=== PATIENT | male | born 1975 | race Caucasian/White ===

== ENCOUNTER 2019-02-20 05:13 | Emergency (ER) | payer MEDICARE ==
[~2019-02-20] VITALS: Ht 188 cm; Wt 110.0 kg
--- NOTE | 2019-02-20 05:28 | NUR ---
bib remsa from home per emt pt has been smoking meth x 6 days, last use [id number], pt now having auditory and visual hallucinations, denies si/hi. 98% r/a, hr-84, b/p-134/90. monitors applied, siderails up x2, call light within reach
[2019-02-20] MEDS ORDERED: LORazepam 1MG TABLET PO ONE (05:30)
[2019-02-20] MEDS ORDERED: LORazepam 1MG TABLET ONE (05:32)
--- NOTE | 2019-02-20 05:36 | NUR ---
pt medicated per mar
[2019-02-20] MEDS ORDERED: CARV3.1212 PO (05:39)
[2019-02-20] MEDS ORDERED: FLUO10CA13 PO (05:39)
[2019-02-20] MEDS ORDERED: SERT25TA PO (05:39)
[2019-02-20] MEDS ORDERED: INSU100V8 SQ (05:39)
--- NOTE | 2019-02-20 06:13 | NUR ---
pt resting calmy, denies needs, monitors in place, call light within reach. will continue to monitor
--- NOTE | 2019-02-20 06:59 | NUR ---
report given to erick goodwin
--- NOTE | 2019-02-20 07:00 | NUR ---
received report from Jesusita. pt upright on gurney awake & calm, responds to staff approp, comfort measures provided, call light within reach.
[2019-02-20 08:01] VITALS: BP 125/79
--- NOTE | 2019-02-20 08:02 | NUR ---
pt upright on gurney with eyes closed, responds to staff approp, comfort measures provided, call light within reach.
[2019-02-20] MEDS ORDERED: ZIPRASIDONE 40MG CAPSULE PO ONE (08:30)
[2019-02-20] MEDS ORDERED: ZIPRASIDONE 20 MG INJ IM ONE (08:40)
[2019-02-20 08:43] LABS: BASOPHILS # (AUTO) 0.03 x10^3/uL (0-0.1); BASOPHILS % (AUTO) 0 % (0-1); EOSINOPHILS # (AUTO) 0.23 x10^3/uL (0-0.4); EOSINOPHILS % (AUTO) 3 % (1-7); LYMPHOCYTES # (AUTO) 2.97 x10^3/uL (1-3.4); LYMPHOCYTES % (AUTO) 32 % (22-44); MD NO; MEAN CORPUSCULAR HEMOGLOBIN 30.6 pg (27.5-34.5); MEAN CORPUSCULAR HGB CONC 33.3 g/dL (33.2-36.2); MEAN CORPUSCULAR VOLUME 91.9 fL (81-97); MONOCYTES # (AUTO) 0.27 x10^3/uL (0.2-0.8); MONOCYTES % (AUTO) 3 % (2-9); NEUTROPHILS # (AUTO) 5.73 x10^3/uL (1.8-6.8); NEUTROPHILS % (AUTO) 62 % (42-75); PLATELET COUNT 283 x10^3/uL (130-400); RED BLOOD COUNT 5.17 x10^6/uL (4.38-5.82); RED CELL DISTRIBUTION WIDTH 13.3 % (9.4-14.8)
[2019-02-20] MEDS ORDERED: ZIPRASIDONE 20MG CAPSULE ONE (08:45)
[2019-02-20 08:55] LABS: ALBUMIN 4.1 g/dL (3.4-5.0); ANION GAP 6 mmol/L (5-15); CALCIUM 9.8 mg/dL (8.5-10.1); CHLORIDE 111 mmol/L (98-107); CREATININE 0.95 mg/dL (0.7-1.3)
--- NOTE | 2019-02-20 08:56 | NUR ---
pt "had an episode" (yelling & violently rocking gurney back & forth while he was in it) & stated to PA he "has thoughts of killing himself by hanging", pt placed in safe environment & is currently laying calmly on gurney with eyes closed, responds to staff approp, comfort measures provided, all personal belongings in bag x1 placed in locker, sitter in full view.
[2019-02-20 09:05] LABS: ACETAMINOPHEN < 2 mcg/mL (10-30)
--- NOTE | 2019-02-20 09:51 | NUR ---
REPORT GIVEN TO EARLENE CUI
[2019-02-20 09:55] LABS: AMPHETAMINE SCREEN, URINE Positive (Negative); BARBITURATE SCREEN, URINE Negative (Negative); BENZODIAZEPINE SCREEN, URINE Negative (Negative); CANNABINOID SCREEN, URINE Negative (Negative); COCAINE SCREEN, URINE Negative (Negative); METHADONE SCREEN, URINE Negative (Negative); OPIATE SCREEN, URINE Negative (Negative)
[2019-02-20 18:58] LABS: ALANINE AMINOTRANSFERASE 20 U/L (12-78)
[2019-02-20 19:00] LABS: ALKALINE PHOSPHATASE 84 U/L (45-117); BILIRUBIN,TOTAL 0.7 mg/dL (0.2-1.0); TOTAL PROTEIN 7.2 g/dL (6.4-8.2)
== END 2019-02-20 13:05 ==
LOC: ED 11:21 → UNDOADMIN 11:22 → EDIP 11:22 → ED 11:31
DX: R45.851 Suicidal ideations (principal); F41.9 Anxiety disorder, unspecified; R44.1 Visual hallucinations; E11.9 Type 2 diabetes mellitus without complications
CPT/HCPCS: 80053; 80307; 80329; 82962; 85025; 99284; G0480

== ENCOUNTER 2019-02-20 12:59 | Inpatient (IN) | payer MEDICARE ==
[~2019-02-20] VITALS: Ht 185.4 cm; Wt 105.4 kg
[~2019-02-20 12:59] MED LIST: CARV3.1212 PO; FLUO10CA13 PO; INSU100V8 SQ; SERT25TA PO
[2019-02-20 13:20] VITALS: BP 108/72
[2019-02-20] MEDS ORDERED: POLYETHYLENE GLYCOL 17 GM PACKET PO PRN (13:30)
[2019-02-20] MEDS ORDERED: DOCUSATE 100 MG CAPSULE PO PRN (13:30)
[2019-02-20] MEDS ORDERED: BISACODYL 10 MG SUPP PR PRN (13:30)
[2019-02-20] MEDS ORDERED: ACETAMINOPHEN 325 MG TABLET PO PRN (13:30)
[2019-02-20] MEDS ORDERED: NICOTINE 21 MG/24 HR PATCH.TD24 TD SCH (15:30)
[2019-02-20] MEDS: ACAMPROSATE 333 MG TABLET.DR PO SCH ×2 (15:48→20:41)
[2019-02-20 19:50] VITALS: BP 94/62
[2019-02-20] MEDS: TRAZODONE 100MG TABLET PO SCH (20:41)
[2019-02-20] MEDS: INSULIN LISPRO 100 UNITS/ML, PEN SQ-INSULIN SCH (20:43)
[2019-02-21] MEDS: INSULIN LISPRO 100 UNITS/ML, PEN SQ-INSULIN SCH ×4 (07:00→20:20)
[2019-02-21] MEDS ORDERED: NICOTINE 7 MG/24 HR PATCH.TD24 TD SCH (07:00)
[2019-02-21 07:22] VITALS: BP 112/74
[2019-02-21] MEDS: FOLIC ACID 1 MG TABLET PO SCH (08:18)
[2019-02-21] MEDS: CARVEDILOL 3.125 MG TABLET PO SCH (08:18)
[2019-02-21] MEDS: THIAMINE 100MG TABLET PO SCH ×2 (08:18→08:33)
[2019-02-21] MEDS: SERTRALINE 50MG TABLET PO SCH (08:18)
[2019-02-21] MEDS: ACAMPROSATE 333 MG TABLET.DR PO SCH ×3 (08:18→20:33)
[2019-02-21] MEDS: NICOTINE 21 MG/24 HR PATCH.TD24 TD SCH (08:24)
[2019-02-21 08:51] LABS: HCT (SEDRATE) 48.5 % (39.2-51.8)
[2019-02-21] MEDS ORDERED: NICOTINE 21 MG/24 HR PATCH.TD24 TD SCH (09:00)
[2019-02-21 09:24] LABS: CHOL/HDL RATIO 2.7; LDL/HDL RATIO 1.4 (0.5-3.0); T4 (THYROXINE) 9.5 mcg/dL (4.5-12.1); THYROID STIMULATING HORMONE 0.361 mIU/L (0.358-3.740)
[2019-02-21 09:30] LABS: BASOPHILS # (AUTO) 0.04 x10^3/uL (0-0.1); BASOPHILS % (AUTO) 1 % (0-1); EOSINOPHILS # (AUTO) 0.25 x10^3/uL (0-0.4); EOSINOPHILS % (AUTO) 3 % (1-7); LYMPHOCYTES # (AUTO) 3.22 x10^3/uL (1-3.4); LYMPHOCYTES % (AUTO) 41 % (22-44); MD NO; MEAN CORPUSCULAR HEMOGLOBIN 30.7 pg (27.5-34.5); MEAN CORPUSCULAR HGB CONC 33.5 g/dL (33.2-36.2); MEAN CORPUSCULAR VOLUME 91.6 fL (81-97); MEAN PLATELET VOLUME 8.4 fL (7.4-10.4); MONOCYTES # (AUTO) 0.43 x10^3/uL (0.2-0.8); MONOCYTES % (AUTO) 5 % (2-9); NEUTROPHILS # (AUTO) 3.99 x10^3/uL (1.8-6.8); NEUTROPHILS % (AUTO) 50 % (42-75); PLATELET COUNT 277 x10^3/uL (130-400); RED BLOOD COUNT 5.29 x10^6/uL (4.38-5.82); RED CELL DISTRIBUTION WIDTH 13.2 % (9.4-14.8)
[2019-02-21 09:36] LABS: ALANINE AMINOTRANSFERASE 22 U/L (12-78); ALBUMIN 4.1 g/dL (3.4-5.0); ANION GAP 7 mmol/L (5-15); CALCIUM 9.3 mg/dL (8.5-10.1); CHLORIDE 108 mmol/L (98-107); CREATININE 1.01 mg/dL (0.7-1.3)
[2019-02-21 09:38] LABS: ALKALINE PHOSPHATASE 82 U/L (45-117); BILIRUBIN,TOTAL 0.8 mg/dL (0.2-1.0); TOTAL PROTEIN 7.3 g/dL (6.4-8.2)
[2019-02-21 13:54] LABS: MICROSCOPIC NOT IND
[2019-02-21 14:01] LABS: CULTURE INDICATED? NO
[2019-02-21 19:42] VITALS: BP 124/71
[2019-02-21] MEDS: TRAZODONE 100MG TABLET PO SCH (20:33)
[2019-02-22] MEDS: INSULIN LISPRO 100 UNITS/ML, PEN SQ-INSULIN SCH ×4 (07:00→20:03)
[2019-02-22 07:27] VITALS: BP 108/73
[2019-02-22 07:32] VITALS: BP 113/76
[2019-02-22] MEDS: NICOTINE 21 MG/24 HR PATCH.TD24 TD SCH (08:56)
[2019-02-22] MEDS: CARVEDILOL 3.125 MG TABLET PO SCH (08:56)
[2019-02-22] MEDS: ACAMPROSATE 333 MG TABLET.DR PO SCH ×3 (08:56→20:03)
[2019-02-22] MEDS: FOLIC ACID 1 MG TABLET PO SCH (08:56)
[2019-02-22] MEDS: THIAMINE 100MG TABLET PO SCH (08:57)
[2019-02-22] MEDS: SERTRALINE 50MG TABLET PO SCH (08:57)
[2019-02-22 19:30] VITALS: BP 121/77
[2019-02-22] MEDS: TRAZODONE 100MG TABLET PO SCH (20:03)
[2019-02-23] MEDS: INSULIN LISPRO 100 UNITS/ML, PEN SQ-INSULIN SCH ×4 (07:00→21:00)
[2019-02-23 07:15] VITALS: BP 125/86
[2019-02-23] MEDS: FOLIC ACID 1 MG TABLET PO SCH (08:31)
[2019-02-23] MEDS: NICOTINE 21 MG/24 HR PATCH.TD24 TD SCH (08:31)
[2019-02-23] MEDS: SERTRALINE 50MG TABLET PO SCH (08:31)
[2019-02-23] MEDS: THIAMINE 100MG TABLET PO SCH (08:31)
[2019-02-23] MEDS: CARVEDILOL 3.125 MG TABLET PO SCH (08:31)
[2019-02-23] MEDS: ACAMPROSATE 333 MG TABLET.DR PO SCH ×3 (08:31→20:14)
[2019-02-23] MEDS: ZIPRASIDONE 40MG CAPSULE PO SCH ×2 (10:53→20:14)
[2019-02-23 19:31] VITALS: BP 117/60
[2019-02-23] MEDS: TRAZODONE 100MG TABLET PO SCH (20:14)
[2019-02-24 07:13] VITALS: BP 133/75
[2019-02-24] MEDS: INSULIN LISPRO 100 UNITS/ML, PEN SQ-INSULIN SCH ×4 (07:24→21:00)
[2019-02-24] MEDS: NICOTINE 21 MG/24 HR PATCH.TD24 TD SCH (08:54)
[2019-02-24] MEDS: SERTRALINE 50MG TABLET PO SCH (08:54)
[2019-02-24] MEDS: CARVEDILOL 3.125 MG TABLET PO SCH (08:54)
[2019-02-24] MEDS: FOLIC ACID 1 MG TABLET PO SCH (08:54)
[2019-02-24] MEDS: ACAMPROSATE 333 MG TABLET.DR PO SCH ×3 (08:55→20:18)
[2019-02-24] MEDS: THIAMINE 100MG TABLET PO SCH (08:55)
[2019-02-24] MEDS: ZIPRASIDONE 40MG CAPSULE PO SCH ×2 (08:55→20:19)
[2019-02-24 19:37] VITALS: BP 130/87
[2019-02-24] MEDS: TRAZODONE 100MG TABLET PO SCH (20:18)
[2019-02-25] MEDS: INSULIN LISPRO 100 UNITS/ML, PEN SQ-INSULIN SCH ×4 (07:00→20:03)
[2019-02-25 07:05] VITALS: BP 129/79
[2019-02-25] MEDS: ZIPRASIDONE 40MG CAPSULE PO SCH ×2 (08:23→20:03)
[2019-02-25] MEDS: FOLIC ACID 1 MG TABLET PO SCH (08:23)
[2019-02-25] MEDS: THIAMINE 100MG TABLET PO SCH (08:23)
[2019-02-25] MEDS: NICOTINE 21 MG/24 HR PATCH.TD24 TD SCH (08:23)
[2019-02-25] MEDS: CARVEDILOL 3.125 MG TABLET PO SCH (08:23)
[2019-02-25] MEDS: ACAMPROSATE 333 MG TABLET.DR PO SCH ×3 (08:23→20:03)
[2019-02-25] MEDS: SERTRALINE 50MG TABLET PO SCH (08:23)
[2019-02-25 19:32] VITALS: BP 148/92
[2019-02-25] MEDS: TRAZODONE 100MG TABLET PO SCH (20:03)
[2019-02-26] MEDS: INSULIN LISPRO 100 UNITS/ML, PEN SQ-INSULIN SCH ×4 (07:41→20:08)
[2019-02-26 07:45] VITALS: BP 153/79
[2019-02-26] MEDS: ACAMPROSATE 333 MG TABLET.DR PO SCH ×3 (08:42→20:07)
[2019-02-26] MEDS: THIAMINE 100MG TABLET PO SCH (08:42)
[2019-02-26] MEDS: CARVEDILOL 3.125 MG TABLET PO SCH (08:42)
[2019-02-26] MEDS: NICOTINE 21 MG/24 HR PATCH.TD24 TD SCH (08:42)
[2019-02-26] MEDS: FOLIC ACID 1 MG TABLET PO SCH (08:43)
[2019-02-26] MEDS: SERTRALINE 50MG TABLET PO SCH (08:43)
[2019-02-26] MEDS: ZIPRASIDONE 40MG CAPSULE PO SCH (08:44)
[2019-02-26 19:19] VITALS: BP 142/100
[2019-02-26] MEDS: TRAZODONE 100MG TABLET PO SCH (20:07)
[2019-02-26] MEDS: ZIPRASIDONE 20MG CAPSULE PO SCH (20:08)
[2019-02-26] MEDS: QUETIAPINE 25MG TABLET PO PRN (21:03)
[2019-02-27 07:09] VITALS: BP 124/84
[2019-02-27] MEDS: INSULIN LISPRO 100 UNITS/ML, PEN SQ-INSULIN SCH ×4 (07:30→20:06)
[2019-02-27] MEDS: NICOTINE 21 MG/24 HR PATCH.TD24 TD SCH (08:54)
[2019-02-27] MEDS: THIAMINE 100MG TABLET PO SCH (08:54)
[2019-02-27] MEDS: FOLIC ACID 1 MG TABLET PO SCH (08:54)
[2019-02-27] MEDS: ZIPRASIDONE 20MG CAPSULE PO SCH ×2 (08:54→20:06)
[2019-02-27] MEDS: SERTRALINE 50MG TABLET PO SCH (08:54)
[2019-02-27] MEDS: ACAMPROSATE 333 MG TABLET.DR PO SCH ×3 (08:55→20:06)
[2019-02-27] MEDS: CARVEDILOL 3.125 MG TABLET PO SCH (08:55)
[2019-02-27 19:49] VITALS: BP 144/95
[2019-02-27] MEDS: TRAZODONE 100MG TABLET PO SCH (20:06)
[2019-02-28] MEDS: QUETIAPINE 25MG TABLET PO PRN (00:55)
[2019-02-28] MEDS: INSULIN LISPRO 100 UNITS/ML, PEN SQ-INSULIN SCH (07:18)
[2019-02-28 07:19] VITALS: BP 118/82
[2019-02-28] MEDS: ZIPRASIDONE 20MG CAPSULE PO SCH (08:33)
[2019-02-28] MEDS: ACAMPROSATE 333 MG TABLET.DR PO SCH (08:33)
[2019-02-28] MEDS: THIAMINE 100MG TABLET PO SCH (08:33)
[2019-02-28] MEDS: CARVEDILOL 3.125 MG TABLET PO SCH (08:33)
[2019-02-28] MEDS: FOLIC ACID 1 MG TABLET PO SCH (08:33)
[2019-02-28] MEDS: SERTRALINE 50MG TABLET PO SCH (08:34)
[2019-02-28] MEDS: NICOTINE 21 MG/24 HR PATCH.TD24 TD SCH (08:34)
== END 2019-02-28 09:55 | disposition home or self-care (01) | DRG 885 ==
LOC: 3E 13:02
PROVIDERS: ADMIT Psychiatry & Neurology Psychosomatic Medicine; ATTEND Psychiatry & Neurology Psychosomatic Medicine
DX: F25.1 Schizoaffective disorder, depressive type (principal); R45.851 Suicidal ideations; F15.20 Other stimulant dependence, uncomplicated; E11.40 Type 2 diabetes mellitus with diabetic neuropathy, unspecified; E78.5 Hyperlipidemia, unspecified; F10.20 Alcohol dependence, uncomplicated; F12.90 Cannabis use, unspecified, uncomplicated; F17.210 Nicotine dependence, cigarettes, uncomplicated; F25.0 Schizoaffective disorder, bipolar type; F41.9 Anxiety disorder, unspecified; G47.00 Insomnia, unspecified; I10 Essential (primary) hypertension; I25.10 Atherosclerotic heart disease of native coronary artery without angina pectoris; Z79.899 Other long term (current) drug therapy; Z86.73 Personal history of transient ischemic attack (TIA), and cerebral infarction without residual deficits; Z71.6 Tobacco abuse counseling
CPT/HCPCS: 36415; 71045; 80053; 80061; 81003; 82607; 82962; 83036; 83735; 84100; 84436; 84443; 85025; 85651; 86592; 93005; 92523-GN; J1815

== ENCOUNTER 2019-05-29 15:03 | Emergency (ER) | payer MEDICARE ==
[~2019-05-29] VITALS: Ht 185.4 cm; Wt 111.5 kg
[2019-05-29] MEDS ORDERED: LORazepam 1MG TABLET ONE (15:48)
[2019-05-29] MEDS: LORazepam 1MG TABLET PO PRN (15:50)
[2019-05-29 15:51] LABS: BASOPHILS # (AUTO) 0.03 x10^3/uL (0-0.1); BASOPHILS % (AUTO) 0 % (0-1); EOSINOPHILS # (AUTO) 0.15 x10^3/uL (0-0.4); EOSINOPHILS % (AUTO) 1 % (1-7); LYMPHOCYTES # (AUTO) 2.84 x10^3/uL (1-3.4); LYMPHOCYTES % (AUTO) 22 % (22-44); MD NO; MEAN CORPUSCULAR HEMOGLOBIN 31.4 pg (27.5-34.5); MEAN CORPUSCULAR HGB CONC 33.5 g/dL (33.2-36.2); MEAN CORPUSCULAR VOLUME 93.8 fL (81-97); MEAN PLATELET VOLUME 7.8 fL (7.4-10.4); MONOCYTES # (AUTO) 0.81 x10^3/uL (0.2-0.8); MONOCYTES % (AUTO) 6 % (2-9); NEUTROPHILS # (AUTO) 8.89 x10^3/uL (1.8-6.8); NEUTROPHILS % (AUTO) 70 % (42-75); PLATELET COUNT 317 x10^3/uL (130-400); RED CELL DISTRIBUTION WIDTH 14.1 % (9.4-14.8)
[2019-05-29 16:06] LABS: ALANINE AMINOTRANSFERASE 30 U/L (12-78); ALBUMIN 4.1 g/dL (3.4-5.0); ANION GAP 10 mmol/L (5-15); CALCIUM 9.6 mg/dL (8.5-10.1); CHLORIDE 102 mmol/L (98-107)
[2019-05-29 16:08] LABS: ALKALINE PHOSPHATASE 96 U/L (45-117); BILIRUBIN,TOTAL 0.4 mg/dL (0.2-1.0); CREATININE 1.31 mg/dL (0.7-1.3); SALICYLATE LEVEL < 1.7 mg/dL (2.8-20.0); TOTAL PROTEIN 8.3 g/dL (6.4-8.2)
--- NOTE | 2019-05-29 16:22 | NUR ---
PT REPORT TO FRANC PIERCE RN. PT CARE TRANSFERRED.
--- NOTE | 2019-05-29 16:25 | NUR ---
I AM ASSUMING CARE OF THIS PT FROM SANDHYA ([place]) WHILE SHE HAS A LUNCHBREAK. SBAR WAS EXCHANGED AT THE BEDSIDE.
[2019-05-29 16:31] LABS: AMPHETAMINE SCREEN, URINE Negative (Negative); BARBITURATE SCREEN, URINE Negative (Negative); BENZODIAZEPINE SCREEN, URINE Negative (Negative); CANNABINOID SCREEN, URINE Negative (Negative); COCAINE SCREEN, URINE Negative (Negative); METHADONE SCREEN, URINE Negative (Negative); OPIATE SCREEN, URINE Negative (Negative)
--- NOTE | 2019-05-29 16:48 | NUR ---
VERBAL SBAR EXCHANGED Meenu PALENCIA ([place]) ON THE FLOOR FOR ADMISSION. WE WILL DISCHARGE FROM THE E.D. AND ADMIT TO BEHAVIORAL HEALTH AT THIS TIME.
--- NOTE | 2019-05-29 17:05 | NUR ---
THERE HAS NOT BEEN ANY COMMUNICATION YET BETWEEN ERP AND PSYCH. WE ARE AWAITING FURTHER DISCUSSION OF THE DETAILS OF THIS DISCHARGE PRIOR TO ANY DISCHARGE/ADMIT.
--- NOTE | 2019-05-29 17:08 | NUR ---
SANDHYA (RN) IS ASSUMIMNG CARE OF THIS PT AT THIS TIME. SBAR REPORT WAS EXCHANGED AT THE BEDSIDE.
--- NOTE | 2019-05-29 17:14 | NUR ---
PT TO BE DC'D FROM [facility] AND ADMITTED TO BEHAVIORAL HEALTH UNIT. AWAITING INTAKE NURSE.
[2019-05-29 17:25] VITALS: BP 138/84
--- NOTE | 2019-05-29 17:39 | NUR ---
BEHAVIORAL HEALTH RN AT BS.
[2019-05-29] MEDS ORDERED: INSU100V13 SQ (18:21)
== END 2019-05-29 17:45 ==
LOC: ED 16:43
DX: F25.9 Schizoaffective disorder, unspecified (principal); E11.9 Type 2 diabetes mellitus without complications; Z76.0 Encounter for issue of repeat prescription
CPT/HCPCS: 36415; 80053; 80307; 85025; 99285

== ENCOUNTER 2019-05-29 17:14 | Inpatient (IN) | payer MEDICARE ==
[~2019-05-29] VITALS: Ht 185.4 cm; Wt 112.6 kg
[2019-05-29] MEDS ORDERED: DOCUSATE 100 MG CAPSULE PO PRN (18:00)
[2019-05-29] MEDS ORDERED: HALOPERIDOL 5 MG TABLET PO PRN (18:00)
[2019-05-29] MEDS ORDERED: ONDANSETRON ODT 4 MG PO PRN (18:00)
[2019-05-29] MEDS ORDERED: BISACODYL 10 MG SUPP PR PRN (18:00)
[2019-05-29] MEDS ORDERED: LORazepam 1MG TABLET PO PRN (18:00)
[2019-05-29] MEDS ORDERED: POLYETHYLENE GLYCOL 17 GM PACKET PO PRN (18:00)
[2019-05-29] MEDS ORDERED: INSU100V13 SQ (18:21)
[2019-05-29 18:28] VITALS: BP 138/88
[2019-05-29] MEDS ORDERED: PLEASE ENTER HEIGHT AND WEIGHT MC SCH (18:30)
[2019-05-29 19:43] VITALS: BP 138/88
[2019-05-29] MEDS: DOXEPIN 25 MG CAPSULE PO SCH (21:24)
[2019-05-29] MEDS: TRAZODONE 100MG TABLET PO SCH (21:25)
[2019-05-29] MEDS: ZIPRASIDONE 20MG CAPSULE PO SCH (21:25)
[2019-05-30 07:18] LABS: CHOL/HDL RATIO 2.3; LDL/HDL RATIO 1.1 (0.5-3.0); T4 (THYROXINE) 8.8 mcg/dL (4.5-12.1)
[2019-05-30 07:19] VITALS: BP 105/71
[2019-05-30] MEDS ORDERED: NICOTINE 21 MG/24 HR PATCH.TD24 TD SCH (09:00)
[2019-05-30] MEDS: SERTRALINE 50MG TABLET PO SCH (09:31)
[2019-05-30] MEDS: ZIPRASIDONE 20MG CAPSULE PO SCH ×2 (09:31→20:37)
[2019-05-30] MEDS ORDERED: HALOPERIDOL 5 MG TABLET PO PRN (12:00)
[2019-05-30] MEDS: NICOTINE 7 MG/24 HR PATCH.TD24 TD SCH (14:23)
[2019-05-30] MEDS: SODIUM CHLORIDE 0.9% 1,000 ML IV SCH (15:00)
[2019-05-30] MEDS: INSULIN LISPRO 100 UNITS/ML, PEN SQ-INSULIN SCH ×2 (16:00→21:00)
[2019-05-30 19:38] VITALS: BP 147/98
[2019-05-30 20:16] LABS: MICROSCOPIC NOT IND
[2019-05-30 20:17] LABS: CULTURE INDICATED? NO
[2019-05-30] MEDS: DOXEPIN 25 MG CAPSULE PO SCH (20:37)
[2019-05-30] MEDS: TRAZODONE 100MG TABLET PO SCH (20:37)
[2019-05-30] MEDS: INSULIN GLARGINE 100 UNITS/ML, PEN SQ-INSULIN SCH (21:22)
[2019-05-31] MEDS: SODIUM CHLORIDE 0.9% 1,000 ML IV SCH (00:25)
[2019-05-31 05:41] LABS: ALANINE AMINOTRANSFERASE 24 U/L (12-78); ALBUMIN 3.3 g/dL (3.4-5.0); ANION GAP 8 mmol/L (5-15); CALCIUM 8.5 mg/dL (8.5-10.1); CHLORIDE 107 mmol/L (98-107); CREATININE 0.85 mg/dL (0.7-1.3)
[2019-05-31 05:43] LABS: ALKALINE PHOSPHATASE 77 U/L (45-117); BILIRUBIN,TOTAL 0.4 mg/dL (0.2-1.0); TOTAL PROTEIN 6.8 g/dL (6.4-8.2)
[2019-05-31] MEDS: INSULIN LISPRO 100 UNITS/ML, PEN SQ-INSULIN SCH ×4 (07:00→21:00)
[2019-05-31 07:13] VITALS: BP 130/82
[2019-05-31] MEDS: SERTRALINE 50MG TABLET PO SCH (08:59)
[2019-05-31] MEDS: ZIPRASIDONE 20MG CAPSULE PO SCH ×2 (08:59→21:53)
[2019-05-31] MEDS: NICOTINE 7 MG/24 HR PATCH.TD24 TD SCH (14:51)
[2019-05-31 19:35] VITALS: BP 153/93
[2019-05-31] MEDS: ACETAMINOPHEN 325 MG TABLET PO PRN (21:53)
[2019-05-31] MEDS: TRAZODONE 100MG TABLET PO SCH (21:53)
[2019-05-31] MEDS: DOXEPIN 25 MG CAPSULE PO SCH (21:53)
[2019-05-31] MEDS: INSULIN GLARGINE 100 UNITS/ML, PEN SQ-INSULIN SCH (22:08)
[2019-06-01] MEDS: INSULIN LISPRO 100 UNITS/ML, PEN SQ-INSULIN SCH ×4 (06:41→20:29)
[2019-06-01 07:15] VITALS: BP 122/85
[2019-06-01] MEDS: SERTRALINE 50MG TABLET PO SCH (08:47)
[2019-06-01] MEDS: ZIPRASIDONE 20MG CAPSULE PO SCH ×2 (08:47→20:19)
[2019-06-01] MEDS: NICOTINE 7 MG/24 HR PATCH.TD24 TD SCH (14:59)
[2019-06-01 19:42] VITALS: BP 137/95
[2019-06-01] MEDS: TRAZODONE 100MG TABLET PO SCH (20:18)
[2019-06-01] MEDS: ACETAMINOPHEN 325 MG TABLET PO PRN (20:19)
[2019-06-01] MEDS: DOXEPIN 25 MG CAPSULE PO SCH (20:20)
[2019-06-01] MEDS: INSULIN GLARGINE 100 UNITS/ML, PEN SQ-INSULIN SCH (20:22)
[2019-06-02] MEDS: INSULIN LISPRO 100 UNITS/ML, PEN SQ-INSULIN SCH ×4 (06:06→20:55)
[2019-06-02 07:21] VITALS: BP 125/80
[2019-06-02] MEDS: SERTRALINE 50MG TABLET PO SCH (09:27)
[2019-06-02] MEDS: LORazepam 1MG TABLET PO PRN (09:27)
[2019-06-02] MEDS: ZIPRASIDONE 20MG CAPSULE PO SCH ×2 (09:28→20:32)
[2019-06-02] MEDS: NICOTINE 7 MG/24 HR PATCH.TD24 TD SCH (15:03)
[2019-06-02 19:19] VITALS: BP 148/73
[2019-06-02] MEDS: TRAZODONE 100MG TABLET PO SCH (20:31)
[2019-06-02] MEDS: DOXEPIN 25 MG CAPSULE PO SCH (20:32)
[2019-06-02] MEDS: INSULIN GLARGINE 100 UNITS/ML, PEN SQ-INSULIN SCH (20:56)
[2019-06-03 07:28] VITALS: BP 116/82
[2019-06-03] MEDS: INSULIN LISPRO 100 UNITS/ML, PEN SQ-INSULIN SCH ×4 (07:41→21:00)
[2019-06-03] MEDS: SERTRALINE 50MG TABLET PO SCH (08:11)
[2019-06-03] MEDS: ZIPRASIDONE 20MG CAPSULE PO SCH ×2 (08:12→21:23)
[2019-06-03] MEDS: NICOTINE 7 MG/24 HR PATCH.TD24 TD SCH (16:03)
[2019-06-03 19:48] VITALS: BP 133/87
[2019-06-03] MEDS: LORazepam 1MG TABLET PO PRN (20:04)
[2019-06-03] MEDS: DOXEPIN 25 MG CAPSULE PO SCH (21:23)
[2019-06-03] MEDS: TRAZODONE 100MG TABLET PO SCH (21:23)
[2019-06-03] MEDS: INSULIN GLARGINE 100 UNITS/ML, PEN SQ-INSULIN SCH (21:24)
[2019-06-04 07:34] VITALS: BP 119/82
[2019-06-04] MEDS: INSULIN LISPRO 100 UNITS/ML, PEN SQ-INSULIN SCH ×4 (07:59→20:33)
[2019-06-04] MEDS: SERTRALINE 100MG TABLET PO SCH (08:04)
[2019-06-04] MEDS: ZIPRASIDONE 20MG CAPSULE PO SCH ×2 (08:04→20:22)
[2019-06-04] MEDS: LORazepam 1MG TABLET PO PRN (10:14)
[2019-06-04] MEDS: NICOTINE 7 MG/24 HR PATCH.TD24 TD SCH (15:26)
[2019-06-04 19:48] VITALS: BP 140/93
[2019-06-04] MEDS: DOXEPIN 25 MG CAPSULE PO SCH (20:22)
[2019-06-04] MEDS: TRAZODONE 100MG TABLET PO SCH (20:22)
[2019-06-04] MEDS: INSULIN GLARGINE 100 UNITS/ML, PEN SQ-INSULIN SCH (20:32)
[2019-06-05] MEDS: INSULIN LISPRO 100 UNITS/ML, PEN SQ-INSULIN SCH ×4 (07:00→20:52)
[2019-06-05 07:52] VITALS: BP 125/82
[2019-06-05] MEDS: SERTRALINE 100MG TABLET PO SCH (08:21)
[2019-06-05] MEDS: ZIPRASIDONE 20MG CAPSULE PO SCH ×2 (08:21→20:27)
[2019-06-05] MEDS: NICOTINE 7 MG/24 HR PATCH.TD24 TD SCH (17:12)
[2019-06-05 19:40] VITALS: BP 146/79
[2019-06-05] MEDS: TRAZODONE 100MG TABLET PO SCH (20:27)
[2019-06-05] MEDS: DOXEPIN 25 MG CAPSULE PO SCH (20:27)
[2019-06-05] MEDS: INSULIN GLARGINE 100 UNITS/ML, PEN SQ-INSULIN SCH (20:28)
[2019-06-05] MEDS: LORazepam 1MG TABLET PO PRN (22:30)
[2019-06-06 06:01] VITALS: BP 128/82
[2019-06-06] MEDS: CARVEDILOL 3.125 MG TABLET PO SCH (06:08)
[2019-06-06] MEDS: INSULIN LISPRO 100 UNITS/ML, PEN SQ-INSULIN SCH ×4 (07:00→21:00)
[2019-06-06 07:29] VITALS: BP 141/91
[2019-06-06] MEDS: SERTRALINE 100MG TABLET PO SCH (08:35)
[2019-06-06] MEDS: ZIPRASIDONE 20MG CAPSULE PO SCH ×2 (08:35→19:55)
[2019-06-06] MEDS: NICOTINE 7 MG/24 HR PATCH.TD24 TD SCH (15:07)
[2019-06-06 19:32] VITALS: BP 131/80
[2019-06-06] MEDS: LORazepam 1MG TABLET PO PRN (19:54)
[2019-06-06] MEDS: DOXEPIN 25 MG CAPSULE PO SCH (19:54)
[2019-06-06] MEDS: TRAZODONE 100MG TABLET PO SCH (19:54)
[2019-06-06] MEDS: INSULIN GLARGINE 100 UNITS/ML, PEN SQ-INSULIN SCH (19:55)
[2019-06-07] MEDS: CARVEDILOL 3.125 MG TABLET PO SCH (06:00)
[2019-06-07 06:05] VITALS: BP 143/92
[2019-06-07] MEDS: INSULIN LISPRO 100 UNITS/ML, PEN SQ-INSULIN SCH ×4 (07:00→20:37)
[2019-06-07 07:41] VITALS: BP 135/85
[2019-06-07] MEDS: ZIPRASIDONE 20MG CAPSULE PO SCH ×2 (08:44→20:35)
[2019-06-07] MEDS: SERTRALINE 100MG TABLET PO SCH (08:44)
[2019-06-07] MEDS: NICOTINE 7 MG/24 HR PATCH.TD24 TD SCH (14:35)
[2019-06-07] MEDS: ESTRADIOL 1 MG TABLET PO SCH (16:24)
[2019-06-07 19:30] VITALS: BP 140/86
[2019-06-07] MEDS: DOXEPIN 25 MG CAPSULE PO SCH (20:34)
[2019-06-07] MEDS: TRAZODONE 100MG TABLET PO SCH (20:34)
[2019-06-07] MEDS: INSULIN GLARGINE 100 UNITS/ML, PEN SQ-INSULIN SCH (20:37)
[2019-06-08] MEDS: CARVEDILOL 3.125 MG TABLET PO SCH (06:14)
[2019-06-08] MEDS: INSULIN LISPRO 100 UNITS/ML, PEN SQ-INSULIN SCH ×4 (07:00→20:17)
[2019-06-08 07:25] VITALS: BP 132/86
[2019-06-08] MEDS: ESTRADIOL 1 MG TABLET PO SCH (08:32)
[2019-06-08] MEDS: SERTRALINE 100MG TABLET PO SCH (08:33)
[2019-06-08] MEDS: ZIPRASIDONE 20MG CAPSULE PO SCH ×2 (08:33→20:13)
[2019-06-08] MEDS: NICOTINE 7 MG/24 HR PATCH.TD24 TD SCH (09:35)
[2019-06-08 19:45] VITALS: BP 126/85
[2019-06-08] MEDS: TRAZODONE 100MG TABLET PO SCH (20:13)
[2019-06-08] MEDS: LORazepam 1MG TABLET PO PRN (20:14)
[2019-06-08] MEDS: DOXEPIN 25 MG CAPSULE PO SCH (20:14)
[2019-06-08] MEDS: INSULIN GLARGINE 100 UNITS/ML, PEN SQ-INSULIN SCH (20:17)
[2019-06-08] MEDS: ACETAMINOPHEN 325 MG TABLET PO PRN (20:31)
[2019-06-09] MEDS: CARVEDILOL 3.125 MG TABLET PO SCH (06:11)
[2019-06-09] MEDS: INSULIN LISPRO 100 UNITS/ML, PEN SQ-INSULIN SCH ×4 (07:36→21:00)
[2019-06-09 08:03] VITALS: BP 134/81
[2019-06-09] MEDS: ZIPRASIDONE 20MG CAPSULE PO SCH ×2 (08:15→20:23)
[2019-06-09] MEDS: SERTRALINE 100MG TABLET PO SCH (08:15)
[2019-06-09] MEDS: ESTRADIOL 1 MG TABLET PO SCH (08:15)
[2019-06-09] MEDS: LORazepam 1MG TABLET PO PRN (12:47)
[2019-06-09] MEDS: NICOTINE 7 MG/24 HR PATCH.TD24 TD SCH (13:04)
[2019-06-09 19:46] VITALS: BP 129/88
[2019-06-09] MEDS: TRAZODONE 100MG TABLET PO SCH (20:22)
[2019-06-09] MEDS: DOXEPIN 25 MG CAPSULE PO SCH (20:23)
[2019-06-09] MEDS: INSULIN GLARGINE 100 UNITS/ML, PEN SQ-INSULIN SCH ×2 (21:00→21:24)
[2019-06-10] MEDS: CARVEDILOL 3.125 MG TABLET PO SCH (05:36)
[2019-06-10] MEDS: INSULIN LISPRO 100 UNITS/ML, PEN SQ-INSULIN SCH ×4 (07:00→21:00)
[2019-06-10 07:36] VITALS: BP 111/77
[2019-06-10] MEDS: ESTRADIOL 1 MG TABLET PO SCH (08:29)
[2019-06-10] MEDS: SERTRALINE 100MG TABLET PO SCH (08:29)
[2019-06-10] MEDS: ZIPRASIDONE 20MG CAPSULE PO SCH ×2 (08:29→20:40)
[2019-06-10] MEDS: NICOTINE 7 MG/24 HR PATCH.TD24 TD SCH ×2 (08:35→19:54)
[2019-06-10] MEDS: LORazepam 1MG TABLET PO PRN (13:20)
[2019-06-10 19:48] VITALS: BP 125/77
[2019-06-10] MEDS: DOXEPIN 25 MG CAPSULE PO SCH (20:40)
[2019-06-10] MEDS: TRAZODONE 100MG TABLET PO SCH (20:40)
[2019-06-10] MEDS: INSULIN GLARGINE 100 UNITS/ML, PEN SQ-INSULIN SCH (21:26)
[2019-06-11] MEDS: CARVEDILOL 3.125 MG TABLET PO SCH (05:44)
[2019-06-11] MEDS: INSULIN LISPRO 100 UNITS/ML, PEN SQ-INSULIN SCH ×4 (07:00→21:53)
[2019-06-11 07:31] VITALS: BP 129/88
[2019-06-11] MEDS: ZIPRASIDONE 20MG CAPSULE PO SCH ×2 (08:58→20:33)
[2019-06-11] MEDS: ESTRADIOL 1 MG TABLET PO SCH (08:58)
[2019-06-11] MEDS: SERTRALINE 100MG TABLET PO SCH (08:58)
[2019-06-11] MEDS: NICOTINE 7 MG/24 HR PATCH.TD24 TD SCH (11:19)
[2019-06-11] MEDS: LORazepam 1MG TABLET PO PRN ×2 (12:15→18:35)
[2019-06-11 20:00] VITALS: BP 135/80
[2019-06-11] MEDS: DOXEPIN 25 MG CAPSULE PO SCH (20:33)
[2019-06-11] MEDS: TRAZODONE 100MG TABLET PO SCH (20:33)
[2019-06-11] MEDS: INSULIN GLARGINE 100 UNITS/ML, PEN SQ-INSULIN SCH (20:39)
[2019-06-12] MEDS: CARVEDILOL 3.125 MG TABLET PO SCH (05:21)
[2019-06-12] MEDS: INSULIN LISPRO 100 UNITS/ML, PEN SQ-INSULIN SCH ×4 (07:00→21:00)
[2019-06-12 07:40] VITALS: BP 110/73
[2019-06-12] MEDS: ZIPRASIDONE 20MG CAPSULE PO SCH ×2 (08:20→20:42)
[2019-06-12] MEDS: ESTRADIOL 1 MG TABLET PO SCH (08:20)
[2019-06-12] MEDS: NICOTINE 7 MG/24 HR PATCH.TD24 TD SCH (08:20)
[2019-06-12] MEDS: SERTRALINE 100MG TABLET PO SCH (08:20)
[2019-06-12 19:49] VITALS: BP 130/84
[2019-06-12] MEDS: DOXEPIN 25 MG CAPSULE PO SCH (20:42)
[2019-06-12] MEDS: TRAZODONE 100MG TABLET PO SCH (20:42)
[2019-06-12] MEDS: INSULIN GLARGINE 100 UNITS/ML, PEN SQ-INSULIN SCH (20:43)
[2019-06-13] MEDS: CARVEDILOL 3.125 MG TABLET PO SCH (06:12)
[2019-06-13] MEDS: INSULIN LISPRO 100 UNITS/ML, PEN SQ-INSULIN SCH (07:00)
[2019-06-13 07:34] VITALS: BP 124/82
[2019-06-13] MEDS: NICOTINE 7 MG/24 HR PATCH.TD24 TD SCH (08:13)
[2019-06-13] MEDS: SERTRALINE 100MG TABLET PO SCH (08:13)
[2019-06-13] MEDS: ZIPRASIDONE 20MG CAPSULE PO SCH (08:14)
== END 2019-06-13 10:03 | disposition home or self-care (01) | DRG 885 ==
LOC: 3E 17:54
PROVIDERS: ADMIT Psychiatry & Neurology Psychosomatic Medicine; ATTEND Psychiatry & Neurology Psychosomatic Medicine
DX: F25.1 Schizoaffective disorder, depressive type (principal); N17.9 Acute kidney failure, unspecified; R45.851 Suicidal ideations; D72.829 Elevated white blood cell count, unspecified; E11.9 Type 2 diabetes mellitus without complications; E78.5 Hyperlipidemia, unspecified; F15.21 Other stimulant dependence, in remission; F41.9 Anxiety disorder, unspecified; G47.00 Insomnia, unspecified; F17.210 Nicotine dependence, cigarettes, uncomplicated; I10 Essential (primary) hypertension; Z79.899 Other long term (current) drug therapy; Z88.8 Allergy status to other drugs, medicaments and biological substances; Z79.4 Long term (current) use of insulin
CPT/HCPCS: 36415; 71045; 80053; 80061; 80307; 81003; 82140; 82607; 82962; 84436; 84443; 85025; 85651; 93005; 99285; J1815; J7030

== ENCOUNTER 2019-06-15 10:27 | Emergency (ER) | payer MEDICARE ==
[~2019-06-15] VITALS: Ht 185.4 cm; Wt 92.0 kg
[~2019-06-15 10:27] MED LIST changes: +INSU100V13 SQ
[2019-06-15 10:46] VITALS: BP 139/104
--- NOTE | 2019-06-15 11:07 | NUR ---
requested records from [facility].
[2019-06-15] MEDS ORDERED: HALOPERIDOL 5 MG/ML ONE (11:09)
[2019-06-15] MEDS ORDERED: HALOPERIDOL 5 MG/ML IM ONE (11:30)
--- NOTE | 2019-06-15 11:54 | NUR ---
Pt provided with a sandwich and milk, per request. Denies any further needs or concerns at this time.
== END 2019-06-15 12:26 | disposition left against medical advice (07) ==
LOC: ED 11:28
DX: F25.1 Schizoaffective disorder, depressive type (principal); E11.9 Type 2 diabetes mellitus without complications; I10 Essential (primary) hypertension; F17.200 Nicotine dependence, unspecified, uncomplicated
CPT/HCPCS: 82962; 96372; 99284; J1630

== ENCOUNTER 2020-04-19 08:27 | Emergency (ER) | payer MEDICARE ==
[~2020-04-19] VITALS: Ht 185.4 cm; Wt 96.9 kg
[2020-04-19 08:28] VITALS: BP 171/111
[2020-04-19 09:50] LABS: BASOPHILS # (AUTO) 0.03 x10^3/uL (0-0.1); BASOPHILS % (AUTO) 1 % (0-1); EOSINOPHILS % (AUTO) 3 % (1-7); LYMPHOCYTES % (AUTO) 38 % (22-44); MD NO; MEAN CORPUSCULAR HEMOGLOBIN 29.9 pg (27.5-34.5); MEAN CORPUSCULAR HGB CONC 32.5 g/dL (33.2-36.2); MEAN CORPUSCULAR VOLUME 91.8 fL (81-97); MEAN PLATELET VOLUME 7.3 fL (7.4-10.4); MONOCYTES # (AUTO) 0.38 x10^3/uL (0.2-0.8); MONOCYTES % (AUTO) 6 % (2-9); NEUTROPHILS # (AUTO) 3.51 x10^3/uL (1.8-6.8); NEUTROPHILS % (AUTO) 53 % (42-75); PLATELET COUNT 259 x10^3/uL (130-400); RED BLOOD COUNT 4.47 x10^6/uL (4.38-5.82); RED CELL DISTRIBUTION WIDTH 14.8 % (9.4-14.8)
[2020-04-19 10:03] LABS: ALBUMIN 3.7 g/dL (3.4-5.0); ANION GAP 9 mmol/L (5-15); CALCIUM 8.7 mg/dL (8.5-10.1); CHLORIDE 104 mmol/L (98-107); SALICYLATE LEVEL 2.7 mg/dL (2.8-20.0)
[2020-04-19 10:06] LABS: ALANINE AMINOTRANSFERASE 19 U/L (12-78); ALKALINE PHOSPHATASE 93 U/L (45-117); BILIRUBIN,TOTAL 0.8 mg/dL (0.2-1.0); CREATININE 0.91 mg/dL (0.7-1.3); TOTAL PROTEIN 6.8 g/dL (6.4-8.2)
== END 2020-04-19 10:31 | disposition home or self-care (01) ==
LOC: ED 09:09
DX: F32.9 Major depressive disorder, single episode, unspecified (principal); F22 Delusional disorders; I10 Essential (primary) hypertension; E11.9 Type 2 diabetes mellitus without complications; F25.9 Schizoaffective disorder, unspecified
CPT/HCPCS: 36415; 80053; 80307; 85025; 99283

== ENCOUNTER 2020-04-23 09:55 | Emergency (ER) | payer MEDICARE ==
[~2020-04-23] VITALS: Ht 182.9 cm; Wt 79.1 kg
[2020-04-23 10:08] VITALS: BP 139/89
--- NOTE | 2020-04-23 10:53 | NUR ---
CHILD AND ADOLESCENT PSYCHOLOGIST: PT TO ROOM FROM JOHANNA BURNHAM
--- NOTE | 2020-04-23 12:21 | NUR ---
PT GIVEN EAN VAZQUEZ AND DC PAPERWORK.
== END 2020-04-23 12:44 | disposition home or self-care (01) ==
LOC: ED 11:02
DX: R53.1 Weakness (principal); E11.9 Type 2 diabetes mellitus without complications; I10 Essential (primary) hypertension
CPT/HCPCS: 99281

== ENCOUNTER 2020-04-23 15:56 | Emergency (ER) | payer MEDICARE ==
[2020-04-23 16:03] VITALS: BP 142/73
--- NOTE | 2020-04-23 16:27 | NUR ---
THIS IS A 44 YO M BIB EMS W/ C/O SI "FOR A FEW HOURS" AND [place]. PT DOES NOT HAVE A PLAN. PT REPORTS THAT HE IS CONVINCED THAT IS BROTHER IS BECAUSE HE CAN NOT GET IN TOUCH W/ HIM. EMS REPORTS A SIMILAR SITUATION X1 WEEK AGO IN WHICH PT WAS CONVINCED MOTHER WAS . PT DENIES ANY HOME MEDS. HX: ANXIETY. PT VSS NADN. PT RESTING ON GURNEY W/ SITTER OUTSIDE ROOM AND GARAGE DOORS DOWN FOR SAFETY. AWAITING ORDERS.
--- NOTE | 2020-04-23 17:20 | NUR ---
PT AGGRESSIVELY KICKED WATER BASINS OVER. STOOD UP AND SLAMMED DOOR SHUT. PT FEEL AFTER SLIPPING IN WATER. DENIES HITTING HEAD OR INJURIES. PER SITTER, PT IMMEDIATELY STOOD UP AND JUMPED ON GURNEY. JESSI WAKEFIELD UPDATED. PT PROVIDED W/ TAXI VOUCHER TO [place] [employer]. VERBALIZED UNDERSTANDING OF DC INSTRUCTIONS.
--- NOTE | 2020-04-23 17:37 | NUR ---
PT AMBULATED TO DC DESK W/ A STEADY GAIT. WHILE SITTING IN DC AREA THREW CHAIR ACROSS HALLWAY AGAINST A WALL ALMOST HITTING ANOTHER PATIENT. HOLE PRESENT IN WALL FROM CHAIR. SECURITY CALLED AND PT ESCORTED OUTSIDE.
== END 2020-04-23 18:01 | disposition home or self-care (01) ==
LOC: ED 17:50
DX: F10.220 Alcohol dependence with intoxication, uncomplicated (principal); Z72.9 Problem related to lifestyle, unspecified; R45.851 Suicidal ideations; B35.3 Tinea pedis; I10 Essential (primary) hypertension; E11.9 Type 2 diabetes mellitus without complications; Y90.9 Presence of alcohol in blood, level not specified
CPT/HCPCS: 99283

== ENCOUNTER 2020-08-23 00:23 | Emergency (ER) | payer MEDICARE, MEDICAID ==
[~2020-08-23] VITALS: Ht 190.5 cm; Wt 90.0 kg
[2020-08-23] MEDS ORDERED: KETOROLAC 30 MG/1 ML IM ONE (00:30)
[2020-08-23] MEDS ORDERED: KETOROLAC 30 MG/1 ML ONE (00:56)
[2020-08-23 01:19] VITALS: BP 126/92
--- NOTE | 2020-08-23 01:35 | NUR ---
PT EDUCATED ON NEED FOR UA, PT STS DOES NOT NEED TO GO BUT WILL CALL WHEN HE NEEDS TO
--- NOTE | 2020-08-23 01:49 | NUR ---
Patient/Caregiver given discharge instructions and they have confirmed that they understand the instructions. Patient ambulatory with steady gait.
== END 2020-08-23 01:50 | disposition home or self-care (01) ==
LOC: ED 00:53
DX: S29.012A Strain of muscle and tendon of back wall of thorax, initial encounter (principal); S30.811A Abrasion of abdominal wall, initial encounter; E11.9 Type 2 diabetes mellitus without complications; I10 Essential (primary) hypertension; F20.9 Schizophrenia, unspecified; Y08.89XA Assault by other specified means, initial encounter; Y93.89 Activity, other specified; Y92.89 Other specified places as the place of occurrence of the external cause; Y99.8 Other external cause status
CPT/HCPCS: 72072; 96372; 99283; J1885

== ENCOUNTER 2020-08-31 19:48 | Emergency (ER) | payer MEDICARE, MEDICAID ==
[~2020-08-31] VITALS: Ht 185.4 cm; Wt 95.0 kg
--- NOTE | 2020-08-31 20:01 | NUR ---
THIS PT WAS BRYAN GUTIERREZ FROM THE [facility] WHERE HE CALLED [phone] APPROX [phone] MINUTES AFTER ELOPING FROM [place]. PT IS CONFIRMED COVID +, O2 SAT AT 99% ON RA. PT ADMITS TO CURRENT METH USE. STATES "CAN I TAKE MY SHOES OFF, I JUST WANT TO SLEEP." PT CAN BE HEARD TALKING TO HIMSELF. A&OX4, ANSWERS QUESTIONS APPROPRIATELY.
[2020-08-31] MEDS ORDERED: SODIUM CHLORIDE 0.9% 1,000ML IVBOLUS ONE (20:30)
[2020-08-31] MEDS ORDERED: ACETAMINOPHEN 325 MG TABLET PO ONE (20:30)
[2020-08-31] MEDS ORDERED: SODIUM CHLORIDE FLUSH 10ML SYR IVF ONE (20:30)
[2020-08-31] MEDS ORDERED: ACETAMINOPHEN 325 MG TABLET ONE (20:34)
[2020-08-31 20:46] LABS: BASOPHILS % (AUTO) 1 % (0-1); EOSINOPHILS % (AUTO) 1 % (1-7); LYMPHOCYTES % (AUTO) 13 % (22-44); MEAN CORPUSCULAR HEMOGLOBIN 30.1 pg (27.5-34.5); MEAN CORPUSCULAR HGB CONC 33.2 g/dL (33.2-36.2); MEAN PLATELET VOLUME 7.3 fL (7.4-10.4); MONOCYTES % (AUTO) 5 % (2-9); NEUTROPHILS % (AUTO) 81 % (42-75); PLATELET COUNT 230 x10^3/uL (130-400); RED BLOOD COUNT 3.86 x10^6/uL (4.38-5.82); RED CELL DISTRIBUTION WIDTH 14.5 % (9.4-14.8)
[2020-08-31 20:51] LABS: MD NO
[2020-08-31 20:54] LABS: ALBUMIN 3.2 g/dL (3.4-5.0); ANION GAP 8 mmol/L (5-15); CALCIUM 8.2 mg/dL (8.5-10.1); CHLORIDE 109 mmol/L (98-107)
[2020-08-31 20:58] LABS: ALANINE AMINOTRANSFERASE 39 U/L (12-78); ALKALINE PHOSPHATASE 98 U/L (45-117); BILIRUBIN,TOTAL 0.5 mg/dL (0.2-1.0); CREATININE 0.78 mg/dL (0.7-1.3); TOTAL PROTEIN 6.1 g/dL (6.4-8.2)
[2020-08-31 21:54] VITALS: BP 122/79
== END 2020-08-31 22:19 | disposition home or self-care (01) ==
LOC: ED 21:21
DX: J06.9 Acute upper respiratory infection, unspecified (principal); R00.0 Tachycardia, unspecified; R06.02 Shortness of breath; I48.91 Unspecified atrial fibrillation; I10 Essential (primary) hypertension; E11.9 Type 2 diabetes mellitus without complications; F17.200 Nicotine dependence, unspecified, uncomplicated
CPT/HCPCS: 36415; 71045; 80053; 85025; 93005; 96360; 99285; J7030

== ENCOUNTER 2020-09-10 15:57 | Emergency (ER) | payer MEDICARE, MEDICAID ==
[2020-09-10 17:56] LABS: BASOPHILS % (AUTO) 1 % (0-1); EOSINOPHILS % (AUTO) 1 % (1-7); LYMPHOCYTES % (AUTO) 28 % (22-44); MEAN CORPUSCULAR HEMOGLOBIN 29.8 pg (27.5-34.5); MEAN CORPUSCULAR HGB CONC 32.7 g/dL (33.2-36.2); MONOCYTES % (AUTO) 5 % (2-9); NEUTROPHILS % (AUTO) 64 % (42-75); PLATELET COUNT 435 x10^3/uL (130-400); RED BLOOD COUNT 4.47 x10^6/uL (4.38-5.82); RED CELL DISTRIBUTION WIDTH 14.8 % (9.4-14.8)
[2020-09-10 17:57] LABS: MD NO
[2020-09-10 18:10] LABS: ANION GAP 5 mmol/L (5-15); CALCIUM 9.2 mg/dL (8.5-10.1); CHLORIDE 108 mmol/L (98-107); CREATININE 0.79 mg/dL (0.7-1.3)
--- NOTE | 2020-09-10 19:32 | NUR ---
PT WALKED BACK FROM LOBBY TO ROOM AT THIS TIME. STEADY UPON AMBULATION.
--- NOTE | 2020-09-10 19:36 | NUR ---
THIS IS A 44 YO MALE WHO PRESENTS TO THE ER C/O BILAT FEET PAIN WITH BILAT BLISTERS AFTER "WALKING 40 MILES". PT ADMITS TO DRINKING "A BEER" AND STATES "I'M AN ADDICT" BUT IS VAGUE ABOUT DRUG USE TODAY. PT ANSWERING ORIENTATION QUESTIONS APPROPRIATELY KNOWS HE'S IN [place]" AND YEAR AND SITUATION BUT HAS RAMBLING SPEECH WITH FLIGHT OF IDEAS. Addendum: 09/10/20 at 1937 by DIANA THIS IS A 44 YO MALE WHO PRESENTS TO THE ER C/O BILAT FEET PAIN WITH BILAT BLISTERS AFTER "WALKING 40 MILES". PT ADMITS TO DRINKING "A BEER" AND STATES "I'M AN ADDICT" BUT IS VAGUE ABOUT DRUG USE TODAY. PT ANSWERING ORIENTATION QUESTIONS APPROPRIATELY KNOWS HE'[place]" AND YEAR AND SITUATION BUT HAS RAMBLING SPEECH WITH FLIGHT OF IDEAS. PT DENIES ANY OTHER MEDICAL PROBLEMS AT THIS TIME.
[2020-09-10 20:25] VITALS: BP 146/87
== END 2020-09-10 20:27 | disposition home or self-care (01) ==
LOC: ED 19:41
DX: L89.892 Pressure ulcer of other site, stage 2 (principal); F15.10 Other stimulant abuse, uncomplicated; F10.10 Alcohol abuse, uncomplicated; M79.671 Pain in right foot; M79.672 Pain in left foot; I10 Essential (primary) hypertension; E11.9 Type 2 diabetes mellitus without complications; F17.210 Nicotine dependence, cigarettes, uncomplicated; Z72.9 Problem related to lifestyle, unspecified; Y90.0 Blood alcohol level of less than 20 mg/100 ml
CPT/HCPCS: 36415; 80048; 85025; 99284; 99406

== ENCOUNTER 2020-10-04 19:38 | Emergency (ER) | payer MEDICARE, MEDICAID ==
[~2020-10-04] VITALS: Ht 188 cm; Wt 97.3 kg
--- NOTE | 2020-10-04 22:25 | NUR ---
CC OF "STERALIZATION" AND FOR MEDICATION AND BUS PASS. REQUESTING RISPERDAL.
--- NOTE | 2020-10-04 22:29 | NUR ---
PT GIVEN CUP FOR UA AND EDUCATED ON RETURNING TO ROOM 19. WHEN ATTEMPTED TO COLLECT UA PT STATED "I COULDNT REMEMBER WHICH ROOM WAS MINE AND I PLACED THE CUP TWO ROOMS UP". AFTER SEARCHING OTHER ROOMS IN HALLWAY NO UA FOUND. PT INSTRUCTED TO USE URINAL, PT STATES HE CANT PEE AND REQUESTING WATER. PT ALSO REFUSING GOWN.
[2020-10-04 23:01] LABS: ALBUMIN 3.6 g/dL (3.4-5.0); ANION GAP 8 mmol/L (5-15); CALCIUM 8.5 mg/dL (8.5-10.1); CHLORIDE 110 mmol/L (98-107); CREATININE 0.69 mg/dL (0.7-1.3)
[2020-10-04 23:03] LABS: SALICYLATE LEVEL < 1.7 mg/dL (2.8-20.0)
[2020-10-04 23:04] LABS: BASOPHILS % (AUTO) 1 % (0-1); EOSINOPHILS % (AUTO) 2 % (1-7); LYMPHOCYTES % (AUTO) 34 % (22-44); MEAN CORPUSCULAR HEMOGLOBIN 30.1 pg (27.5-34.5); MEAN CORPUSCULAR HGB CONC 33.4 g/dL (33.2-36.2); MEAN PLATELET VOLUME 7.8 fL (7.4-10.4); MONOCYTES % (AUTO) 6 % (2-9); NEUTROPHILS % (AUTO) 58 % (42-75); PLATELET COUNT 255 x10^3/uL (130-400); RED BLOOD COUNT 4.29 x10^6/uL (4.38-5.82); RED CELL DISTRIBUTION WIDTH 14.2 % (9.4-14.8)
[2020-10-04 23:06] LABS: MD NO
--- NOTE | 2020-10-04 23:30 | NUR ---
PT IN ROOM SITTING ON CHAIR. REFUSING TO SIT IN GURNEY AND REFUSING TO WEAR GOWN
--- NOTE | 2020-10-05 00:30 | NUR ---
PENDING TELE [facility]. PT SITTING ON [facility]. NO NEEDS AT THIS TIME. PT PROVIDED SOCKS
[2020-10-05 00:34] LABS: AMPHETAMINE SCREEN, URINE Negative (Negative); BARBITURATE SCREEN, URINE Negative (Negative); BENZODIAZEPINE SCREEN, URINE Negative (Negative); CANNABINOID SCREEN, URINE Positive (Negative); COCAINE SCREEN, URINE Negative (Negative); METHADONE SCREEN, URINE Negative (Negative); OPIATE SCREEN, URINE Negative (Negative)
--- NOTE | 2020-10-05 01:30 | NUR ---
REPORT GIVEN TO COURTNEY CUI
--- NOTE | 2020-10-05 02:19 | NUR ---
PT BEING TELEPSYCHED NOW.
[2020-10-05 02:26] VITALS: BP 161/90
[2020-10-05] MEDS ORDERED: OLANZAPINE 5 MG TABLET ONE (02:58)
[2020-10-05] MEDS ORDERED: OLANZAPINE 5 MG TABLET PO SCH (09:00)
== END 2020-10-05 03:28 | disposition home or self-care (01) ==
LOC: ED 22:11
DX: F20.9 Schizophrenia, unspecified (principal); R45.851 Suicidal ideations; I10 Essential (primary) hypertension; E11.9 Type 2 diabetes mellitus without complications; F17.210 Nicotine dependence, cigarettes, uncomplicated; Z91.14 Patient's other noncompliance with medication regimen
CPT/HCPCS: 36415; 80048; 80307; 82040; 85025; 99284; 99406